=== PATIENT | male | born 2000 | race Caucasian/White ===

== ENCOUNTER 2022-12-07 19:29 | Inpatient (IN) | payer OTHER, BC ==
[~2022-12-07 19:29] MED LIST: Iopamidol-370 76% 500 ML MDV (1 ML CHARGE) ONE
[2022-12-07] MEDS ORDERED: Fentanyl CADD 100 ML IV SCH ×2 (19:45→22:15)
[2022-12-07] MEDS ORDERED: fentaNYL 50 mcg/mL 1 mL Vial ONE (19:57)
[2022-12-07 20:25] LABS: Actual Bicarbonate (HCO3v) 20.3 mEq/L (22-28); Analyzer IN Cardio ER; Base Excess -4.4 mEq/L (-2.0 to +3.0); Calcium, Ionized (venous) 1.14 mmol/L (1.16-1.32); Chloride (VBG) 104 mmol/L (98-106); Hematocrit-VBG 50 % (42.0-52.0); Hemoglobin (Hb) 16.9 g/dL (13.2-17.3); Potassium (VBG) 3.21 mmol/L (3.70-5.30); pH (venous) 7.362 (7.32-7.43)
[2022-12-07 20:27] LABS: Actual Bicarbonate (HCO3a) 20.1 mEq/L (22-28); Analyzer IN Cardio ER; Base Excess (BEa) -2.8 mEq/L (-2.0 to +3.0); CO2 Tension 30.5 mmHg (35.0-45.0); Calcium, Ionized (arterial) 1.14 mmol/L (1.12-1.30); Carboxyhemoglobin (COHb) 0.3 gm% (0.0-3.0); Hematocrit-ABG 46 % (42.0-52.0); Hemoglobin (Hb) 15.7 g/dL (14.0-18.0); O2 Tension (PaO2), arterial 575.3 mmHg (80.0-100.0); Potassium - ABG Lab 3.19 mmol/L (3.70-5.30); pH, Arterial 7.436 (7.35-7.45)
[2022-12-07 20:33] LABS: Puncture Site RFA
[2022-12-07 20:34] LABS: ALV-art Gradient 99.575 mmHg (0-20)
[2022-12-07 20:36] LABS: #Basophils 0.2 thou/uL (0.0-0.2); #Eosinphils 0.6 thou/uL (0.0-0.7); #Neutrophils 7.1 thou/uL (1.40-6.50); %Basophils 1.1 % (0.0-1.0); %Eosinophils 3.4 % (0.0-10.0); %Lymphocytes 45.5 % (21.0-51.0); %Monocytes 5.6 % (0.0-10.0); %Neutrophils 41.9 % (42.0-75.0); Hematocrit 50.4 % (42.0-52.0); Hemoglobin 17.5 g/dL (14.0-18.0); Mean Corpuscular HGB CONC 34.7 g/dL (32.0-36.0); Mean Corpuscular Hemoglobin 32.5 pg (27.0-31.0); Mean Corpuscular Volume 93.7 fl (78.0-98.0); Mean Platelet Volume 10.8 fL (7.4-10.4); Platelet Count 310 10x3/uL (130-400); RBC Distribution Width 11.9 % (11.5-14.5); Red Blood Cell (RBC) Count 5.38 mill/uL (4.70-6.10); White Blood Cell (WBC) Count 17.1 10x3/uL (4.8-10.8)
[2022-12-07] MEDS ORDERED: Midazolam HCl 2 mg/2 ml Vial ONE (20:41)
[2022-12-07] MEDS ORDERED: Water For Inject, Bacteriostat 30 ML ONE (20:41)
[2022-12-07] MEDS ORDERED: Vecuronium 10 MG VIAL ONE (20:41)
[2022-12-07] MEDS ORDERED: HYDROmorphone 2 MG/ML VIAL ONE (20:46)
[2022-12-07 20:50] LABS: INR-International Normal Ratio 1.1; PTT 24.9 sec (22.9-36.1)
[2022-12-07 20:58] LABS: ALT (SGPT) 23 U/L (8-55); AST (SGOT) 36 U/L (5-34); Albumin 4.7 g/dL (3.5-5.0); Alkaline Phosphatase 67 U/L (40-110); Anion Gap 18 mmol/L (10-20); BUN (Urea Nitrogen) 16 mg/dL (8.9-20.6); Bilirubin, Total 0.4 mg/dL (0.2-1.2); Calc. Creatinine Clearance 0 mL/min (70-130); Calcium 8.9 mg/dL (7.8-10.44); Carbon Dioxide 19 mmol/L (22-29); Chloride 105 mmol/L (98-107); Estimated GFR 80; Globulin 3.2 g/dL (2.4-3.5); Glucose 155 mg/dL (70-105); Potassium 3.4 mmol/L (3.5-5.1); Protein, Total 7.9 g/dL (6.0-8.3); Sodium 139 mmol/L (136-145)
[2022-12-07 21:23] LABS: Bilirubin Negative (Negative); Blood, Urine Trace (Negative); CAUTI Indications for Culture Alt mental st,lethar; Calcium Oxalate Crystals Rare HPF (None Seen); Clarity Clear (Clear); Glucose, Urine (Dipstick) Normal (Negative); Ketone, Urine Negative (Negative); Leukocyte Negative Leu/uL (Negative); Mucous/LPF Rare LPF (<2+); Nitrite Negative (Negative); Protein, Urine (Dipstick) 50 mg/dL (Neg-Trace); RBC/HPF 0-3 HPF (0-3); Specific Gravity, Urine 1.026 (1.002-1.036); Squamous Epithelial 0-3 HPF (0-3); Urobilinogen Normal mg/dL (Less than 2); WBC/HPF 0-3 HPF (0-3); pH, Urine 5.5 (5.0-9.0)
[2022-12-07 21:24] LABS: Bacteria/HPF 1+ HPF (None Seen)
[2022-12-07 21:26] LABS: Urine Culture Reflex No No
[2022-12-07] MEDS ORDERED: Vancomycin 1 GM VIAL ONE (21:42)
[2022-12-07] MEDS ORDERED: Glucagon 1 MG/ML KIT IM PRN (21:43)
[2022-12-07] MEDS ORDERED: Dextrose 5% in Water 1,000 ML IV PRN (21:43)
[2022-12-07] MEDS ORDERED: Ondansetron PF 4 MG/2 ML Vial IVP PRN (21:43)
[2022-12-07] MEDS ORDERED: TETANUS, DIPHTHERIA TOX,ADULT (TDVAX) 0.5 ML VIAL IM ONE (21:43)
[2022-12-07] MEDS ORDERED: Dextrose 50% Abboject 50 ML SYRINGE SLOW IVP PRN (21:43)
[2022-12-07] MEDS ORDERED: Ventilator Sedation Protocol 1 EACH FS ONE (21:57)
[2022-12-07] MEDS ORDERED: Rocuronium Bromide 10 MG/ML (10ML VIAL) ONE (22:06)
[2022-12-07] MEDS ORDERED: Ondansetron PF 4 MG/2 ML Vial ONE (22:06)
[2022-12-07] MEDS ORDERED: PHENYLEPHRINE-NS 100 MCG/ML 10 ML SYRINGE ONE (22:06)
[2022-12-07] MEDS ORDERED: Propofol 1,000 MG/100 ML VIAL IV PRN (22:15)
[2022-12-07] MEDS ORDERED: DISCONTINUE PREVIOUS NARCOTIC PAIN MEDICATIONS AND BENZODIAZEPINES FS SCH (22:15)
[2022-12-07] MEDS ORDERED: Propofol BOLUS 1,000 MG/100 ML VIAL IV PRN (22:15)
[2022-12-07] MEDS ORDERED: Morphine 2 MG/ML VIAL SLOW IVP PRN (22:15)
[2022-12-07] MEDS ORDERED: Lorazepam 2 MG/ML VIAL SLOW IVP PRN (22:15)
[2022-12-07] MEDS ORDERED: Fentanyl BOLUS 250 ML IVPB PRN (22:15)
[2022-12-07] MEDS ORDERED: SUGAMMADEX SODIUM 200 MG/2 ML VIAL ONE (23:45)
[2022-12-07] MEDS ORDERED: Bacitracin Zinc Ointment 30 gm TUBE ONE (23:55)
[2022-12-07] MEDS ORDERED: CEFAZOLIN 2 GM in Sodium Chloride 0.9% 100 ML IVPB SCH (23:59)
[2022-12-08] MEDS ORDERED: Midazolam HCl 2 mg/2 ml Vial ONE (00:24)
[2022-12-08] MEDS ORDERED: Fentanyl CADD 100 ML ONE (00:54)
[2022-12-08] MEDS ORDERED: Electrolyte Replacement Protocol 1 EACH FS SCH (01:15)
[2022-12-08 01:37] LABS: Lactic Acid 2.3 mmol/L (0.5-2.2)
[2022-12-08] MEDS: Sodium Chloride 0.9% 1,000 ML IV SCH ×4 (03:21→15:51)
[2022-12-08] MEDS: CEFAZOLIN 2 GM in Sodium Chloride 0.9% 100 ML IVPB SCH ×3 (04:04→20:48)
[2022-12-08 04:32] LABS: #Monocytes 1.6 thou/uL (0.11-0.59); #Neutrophils 19.9 thou/uL (1.40-6.50); %Basophils 0.2 % (0.0-1.0); %Lymphocytes 4.4 % (21.0-51.0); %Monocytes 6.9 % (0.0-10.0); %Neutrophils 87.9 % (42.0-75.0); Mean Corpuscular HGB CONC 35.1 g/dL (32.0-36.0); Mean Corpuscular Hemoglobin 32.3 pg (27.0-31.0); Mean Corpuscular Volume 92.2 fl (78.0-98.0); Mean Platelet Volume 10.6 fL (7.4-10.4); RBC Distribution Width 11.9 % (11.5-14.5); Red Blood Cell (RBC) Count 3.99 mill/uL (4.70-6.10); White Blood Cell (WBC) Count 22.7 10x3/uL (4.8-10.8)
[2022-12-08 04:48] LABS: Hematocrit 36.8 % (42.0-52.0); Hemoglobin 12.9 g/dL (14.0-18.0); Platelet Count 182 10x3/uL (130-400)
[2022-12-08 04:55] LABS: Phosphorus 2.2 mg/dL (2.3-4.7)
[2022-12-08 04:59] LABS: Anion Gap 12 mmol/L (10-20); BUN (Urea Nitrogen) 16 mg/dL (8.9-20.6); Calc. Creatinine Clearance 140 mL/min (70-130); Calcium 8.3 mg/dL (7.8-10.44); Carbon Dioxide 22 mmol/L (22-29); Chloride 109 mmol/L (98-107); Estimated GFR 118; Glucose 150 mg/dL (70-105); Magnesium 1.8 mg/dL (1.6-2.6); Potassium 4.4 mmol/L (3.5-5.1); Sodium 139 mmol/L (136-145)
[2022-12-08] MEDS ORDERED: Magnesium 2 GM/50 ML(in water) 2 GM in Premix Bag 1 BAG IVPB SCH (08:00)
[2022-12-08] MEDS: Famotidine/PF 20 mg/2ml Vial SLOW IVP SCH ×2 (08:31→20:48)
[2022-12-08] MEDS ORDERED: Aspirin 325 MG TAB PO SCH (13:23)
[2022-12-08] MEDS ORDERED: Morphine 2 MG/ML VIAL SLOW IVP PRN (20:04)
[2022-12-08] MEDS ORDERED: DC Sedation Protocol FS ONE (20:04)
[2022-12-08] MEDS ORDERED: Ibuprofen 600 MG TAB PO PRN (20:04)
[2022-12-08] MEDS ORDERED: Ibuprofen 200 MG TAB PO PRN (20:25)
[2022-12-08] MEDS ORDERED: Acetaminophen 500 MG TAB PO PRN (20:50)
[2022-12-08] MEDS ORDERED: Ibuprofen 600 MG TAB PO SCH (21:00)
[2022-12-08] MEDS: Acetaminophen 325 MG TAB PO SCH (21:55)
[2022-12-09] MEDS: Sodium Chloride 0.9% 1,000 ML IV SCH ×3 (02:52→20:16)
[2022-12-09] MEDS: Acetaminophen 325 MG TAB PO SCH ×3 (04:08→17:24)
[2022-12-09] MEDS: CEFAZOLIN 2 GM in Sodium Chloride 0.9% 100 ML IVPB SCH (04:09)
[2022-12-09 04:39] LABS: #Eosinphils 0.1 thou/uL (0.0-0.7); #Monocytes 1.1 thou/uL (0.11-0.59); %Basophils 0.3 % (0.0-1.0); %Lymphocytes 18.4 % (21.0-51.0); %Monocytes 10.9 % (0.0-10.0); %Neutrophils 68.9 % (42.0-75.0); Hemoglobin 10.6 g/dL (14.0-18.0); Mean Corpuscular HGB CONC 34.2 g/dL (32.0-36.0); Mean Corpuscular Hemoglobin 32.7 pg (27.0-31.0); Mean Platelet Volume 10.5 fL (7.4-10.4); Red Blood Cell (RBC) Count 3.24 mill/uL (4.70-6.10); White Blood Cell (WBC) Count 10.1 10x3/uL (4.8-10.8)
[2022-12-09 05:08] LABS: Platelet Count 129 10x3/uL (130-400)
[2022-12-09 05:09] LABS: Mean Corpuscular Volume 95.7 fl (78.0-98.0)
[2022-12-09 05:16] LABS: ALT (SGPT) 14 U/L (8-55); AST (SGOT) 34 U/L (5-34); Albumin 3.5 g/dL (3.5-5.0); Alkaline Phosphatase 39 U/L (40-110); Anion Gap 10 mmol/L (10-20); BUN (Urea Nitrogen) 8 mg/dL (8.9-20.6); Bilirubin, Total 0.8 mg/dL (0.2-1.2); Calc. Creatinine Clearance 159 mL/min (70-130); Calcium 8.3 mg/dL (7.8-10.44); Carbon Dioxide 25 mmol/L (22-29); Chloride 110 mmol/L (98-107); Estimated GFR 131; Globulin 2.2 g/dL (2.4-3.5); Glucose 91 mg/dL (70-105); Magnesium 2.2 mg/dL (1.6-2.6); Phosphorus 1.9 mg/dL (2.3-4.7); Potassium 3.8 mmol/L (3.5-5.1); Protein, Total 5.7 g/dL (6.0-8.3); Sodium 141 mmol/L (136-145)
[2022-12-09] MEDS ORDERED: Potassium Phosphate 15 MMOL in Sodium Chloride 0.9% 100 ML IVPB SCH (08:00)
[2022-12-09] MEDS: Ibuprofen 600 MG TAB PO PRN ×3 (08:23→21:54)
[2022-12-09] MEDS: Famotidine/PF 20 mg/2ml Vial SLOW IVP SCH ×2 (08:24→20:16)
[2022-12-09] MEDS: Aspirin 325 MG TAB PO SCH (08:25)
[2022-12-09] MEDS: prednisoLONE 1% Ophth Susp 5 ml Bottle EA EYE SCH ×8 (11:37→21:55)
[2022-12-09] MEDS: Senokot 8.6 MG TAB PO SCH (20:37)
[2022-12-10] MEDS: prednisoLONE 1% Ophth Susp 5 ml Bottle EA EYE SCH ×7 (00:11→11:59)
[2022-12-10] MEDS: Acetaminophen 325 MG TAB PO SCH ×5 (00:12→23:27)
[2022-12-10] MEDS: Sodium Chloride 0.9% 1,000 ML IV SCH (04:35)
[2022-12-10] MEDS: Polyethylene Glycol 3350 17 GM Packet PO SCH (09:21)
[2022-12-10] MEDS: Aspirin 325 MG TAB PO SCH (09:21)
[2022-12-10] MEDS: Senokot 8.6 MG TAB PO SCH ×2 (09:21→20:49)
[2022-12-10] MEDS: Famotidine/PF 20 mg/2ml Vial SLOW IVP SCH (09:21)
[2022-12-10] MEDS ORDERED: Acetaminophen/Codeine 30-300mg Tablet PO PRN (13:18)
[2022-12-10] MEDS: prednisoLONE 1% Ophth Susp 5 ml Bottle L EYE SCH ×2 (17:55→20:50)
[2022-12-10] MEDS: Famotidine 20 MG TAB PO SCH (20:49)
[2022-12-11] MEDS: Acetaminophen 325 MG TAB PO SCH ×3 (05:57→17:53)
[2022-12-11 07:28] VITALS: BMI 18.2
[2022-12-11 08:10] LABS: #Eosinphils 0.3 thou/uL (0.0-0.7); #Monocytes 0.6 thou/uL (0.11-0.59); #Neutrophils 3.6 thou/uL (1.40-6.50); %Basophils 0.6 % (0.0-1.0); %Eosinophils 4.4 % (0.0-10.0); %Lymphocytes 28.3 % (21.0-51.0); %Monocytes 9.2 % (0.0-10.0); %Neutrophils 57.2 % (42.0-75.0); Hematocrit 31.1 % (42.0-52.0); Hemoglobin 10.9 g/dL (14.0-18.0); Mean Corpuscular Hemoglobin 32.7 pg (27.0-31.0); Mean Corpuscular Volume 93.4 fl (78.0-98.0); Mean Platelet Volume 10.3 fL (7.4-10.4); Platelet Count 159 10x3/uL (130-400); RBC Distribution Width 11.7 % (11.5-14.5); Red Blood Cell (RBC) Count 3.33 mill/uL (4.70-6.10); White Blood Cell (WBC) Count 6.3 10x3/uL (4.8-10.8)
[2022-12-11 08:35] LABS: ALT (SGPT) 20 U/L (8-55); AST (SGOT) 57 U/L (5-34); Albumin 3.9 g/dL (3.5-5.0); Alkaline Phosphatase 41 U/L (40-110); Anion Gap 13 mmol/L (10-20); BUN (Urea Nitrogen) 9 mg/dL (8.9-20.6); Bilirubin, Total 0.6 mg/dL (0.2-1.2); Calc. Creatinine Clearance 131 mL/min (70-130); Calcium 8.9 mg/dL (7.8-10.44); Carbon Dioxide 26 mmol/L (22-29); Chloride 108 mmol/L (98-107); Estimated GFR 127; Globulin 2.6 g/dL (2.4-3.5); Glucose 88 mg/dL (70-105); Magnesium 1.8 mg/dL (1.6-2.6); Phosphorus 3.7 mg/dL (2.3-4.7); Potassium 3.6 mmol/L (3.5-5.1); Protein, Total 6.5 g/dL (6.0-8.3); Sodium 143 mmol/L (136-145)
[2022-12-11] MEDS ORDERED: Magnesium 2 GM/50 ML(in water) 2 GM in Premix Bag 1 BAG IVPB SCH (09:00)
[2022-12-11] MEDS: Polyethylene Glycol 3350 17 GM Packet PO SCH (09:15)
[2022-12-11] MEDS: Aspirin 325 MG TAB PO SCH (09:15)
[2022-12-11] MEDS: Senokot 8.6 MG TAB PO SCH ×2 (09:15→21:16)
[2022-12-11] MEDS: Famotidine 20 MG TAB PO SCH ×2 (09:15→21:16)
[2022-12-11] MEDS: Bacitracin Zinc Ointment 30 gm TUBE TOP SCH (09:16)
[2022-12-11] MEDS: prednisoLONE 1% Ophth Susp 5 ml Bottle L EYE SCH ×4 (09:17→21:15)
[2022-12-11] MEDS: Acetaminophen/Codeine 30-300mg Tablet PO PRN (17:53)
[2022-12-12] MEDS: Acetaminophen 325 MG TAB PO SCH ×5 (00:03→22:40)
[2022-12-12] MEDS: Polyethylene Glycol 3350 17 GM Packet PO SCH (09:13)
[2022-12-12] MEDS: prednisoLONE 1% Ophth Susp 5 ml Bottle L EYE SCH ×4 (09:13→22:18)
[2022-12-12] MEDS: Senokot 8.6 MG TAB PO SCH ×2 (09:13→22:17)
[2022-12-12] MEDS: Aspirin 325 MG TAB PO SCH (09:13)
[2022-12-12] MEDS: Bacitracin Zinc Ointment 30 gm TUBE TOP SCH (09:14)
[2022-12-12 09:20] LABS: #Eosinphils 0.3 thou/uL (0.0-0.7); #Monocytes 0.6 thou/uL (0.11-0.59); #Neutrophils 3.2 thou/uL (1.40-6.50); %Basophils 0.7 % (0.0-1.0); %Eosinophils 5.6 % (0.0-10.0); %Lymphocytes 30.3 % (21.0-51.0); %Monocytes 10.2 % (0.0-10.0); %Neutrophils 52.7 % (42.0-75.0); Hematocrit 33.3 % (42.0-52.0); Hemoglobin 11.5 g/dL (14.0-18.0); Mean Corpuscular HGB CONC 34.5 g/dL (32.0-36.0); Mean Corpuscular Hemoglobin 32.7 pg (27.0-31.0); Mean Corpuscular Volume 94.6 fl (78.0-98.0); Mean Platelet Volume 9.9 fL (7.4-10.4); Platelet Count 188 10x3/uL (130-400); RBC Distribution Width 11.9 % (11.5-14.5); Red Blood Cell (RBC) Count 3.52 mill/uL (4.70-6.10); White Blood Cell (WBC) Count 6.1 10x3/uL (4.8-10.8)
[2022-12-12 10:23] LABS: Anion Gap 14 mmol/L (10-20); BUN (Urea Nitrogen) 9 mg/dL (8.9-20.6); Calc. Creatinine Clearance 131 mL/min (70-130); Carbon Dioxide 24 mmol/L (22-29); Chloride 108 mmol/L (98-107); Estimated GFR 124; Glucose 87 mg/dL (70-105); Sodium 142 mmol/L (136-145)
[2022-12-12 10:24] LABS: ALT (SGPT) 21 U/L (8-55); AST (SGOT) 51 U/L (5-34); Alkaline Phosphatase 46 U/L (40-110); Bilirubin, Total 0.7 mg/dL (0.2-1.2); Calcium 9.4 mg/dL (7.6-10.4); Globulin 2.8 g/dL (2.4-3.5); Protein, Total 6.8 g/dL (6.0-8.3)
[2022-12-12] MEDS: Acetaminophen/Codeine 30-300mg Tablet PO PRN ×2 (12:45→22:17)
[2022-12-12] MEDS ORDERED: Scopolamine 1.5 mg/72 hour Patch TD SCH (17:15)
[2022-12-13] MEDS: Acetaminophen 325 MG TAB PO SCH ×3 (05:28→17:28)
[2022-12-13] MEDS ORDERED: Lactulose 10 GM/15 ML Oral Solution PO SCH (09:00)
[2022-12-13] MEDS: Aspirin 325 MG TAB PO SCH (09:14)
[2022-12-13] MEDS: Polyethylene Glycol 3350 17 GM Packet PO SCH (09:15)
[2022-12-13] MEDS: Bacitracin Zinc Ointment 30 gm TUBE TOP SCH (09:15)
[2022-12-13] MEDS: Senokot 8.6 MG TAB PO SCH ×2 (09:15→20:18)
[2022-12-13] MEDS: prednisoLONE 1% Ophth Susp 5 ml Bottle L EYE SCH ×4 (09:16→20:18)
[2022-12-13] MEDS: Acetaminophen/Codeine 30-300mg Tablet PO PRN (11:42)
[2022-12-14] MEDS: Acetaminophen 325 MG TAB PO SCH ×3 (00:16→12:39)
[2022-12-14] MEDS: prednisoLONE 1% Ophth Susp 5 ml Bottle L EYE SCH ×2 (09:00→12:41)
[2022-12-14] MEDS ORDERED: Bacitracin 1 PK TOP SCH (09:00)
[2022-12-14] MEDS ORDERED: Bacitracin Zinc Ointment 30 gm TUBE TOP SCH (09:00)
[2022-12-14] MEDS: Aspirin 325 MG TAB PO SCH (09:59)
[2022-12-14] MEDS: Polyethylene Glycol 3350 17 GM Packet PO SCH (10:02)
[2022-12-14] MEDS: Senokot 8.6 MG TAB PO SCH (10:02)
[2022-12-14 13:36] VITALS: BP 92/55; TEMP 98.6
== END 2022-12-14 16:50 | DRG 40 ==
LOC: EDBD 19:29 → ERS 19:29 → SDC/OP 21:23 → CCU 21:43 → SURG A 12-09 12:15
PROVIDERS: ADMIT Surgery; ATTEND Surgery
PROC: 05H633Z Insertion of Infusion Device into Left Subclavian Vein, Percutaneous Approach (ICD-10-PCS; principal; 2022-12-07)
PROC: 0T9B70Z Drainage of Bladder with Drainage Device, Via Natural or Artificial Opening (ICD-10-PCS; 2022-12-07)
PROC: 0BH17EZ Insertion of Endotracheal Airway into Trachea, Via Natural or Artificial Opening (ICD-10-PCS; 2022-12-07)
PROC: 4A033R1 Measurement of Arterial Saturation, Peripheral, Percutaneous Approach (ICD-10-PCS; 2022-12-07)
PROC: 4A043R1 Measurement of Venous Saturation, Peripheral, Percutaneous Approach (ICD-10-PCS; 2022-12-07)
PROC: 0JB40ZZ Excision of Right Neck Subcutaneous Tissue and Fascia, Open Approach (ICD-10-PCS; 2022-12-07)
PROC: 0JB70ZZ Excision of Back Subcutaneous Tissue and Fascia, Open Approach (ICD-10-PCS; 2022-12-07)
PROC: 0JQ40ZZ Repair Right Neck Subcutaneous Tissue and Fascia, Open Approach (ICD-10-PCS; 2022-12-07)
PROC: 0JQ70ZZ Repair Back Subcutaneous Tissue and Fascia, Open Approach (ICD-10-PCS; 2022-12-07)
PROC: 0JQ00ZZ Repair Scalp Subcutaneous Tissue and Fascia, Open Approach (ICD-10-PCS; 2022-12-07)
PROC: 0JB00ZZ Excision of Scalp Subcutaneous Tissue and Fascia, Open Approach (ICD-10-PCS; 2022-12-07)
PROC: 0HBBXZZ Excision of Right Upper Arm Skin, External Approach (ICD-10-PCS; 2022-12-07)
PROC: 5A1935Z Respiratory Ventilation, Less than 24 Consecutive Hours (ICD-10-PCS; 2022-12-08)
DX: S06.2X9A Diffuse traumatic brain injury with loss of consciousness of unspecified duration, initial encounter (principal); I77.71 Dissection of carotid artery; J96.00 Acute respiratory failure, unspecified whether with hypoxia or hypercapnia; E87.20 Acidosis, unspecified; S32.029A Unspecified fracture of second lumbar vertebra, initial encounter for closed fracture; S73.014A Posterior dislocation of right hip, initial encounter; S32.039A Unspecified fracture of third lumbar vertebra, initial encounter for closed fracture; S15.0 Injury of carotid artery of neck; S06.339A Contusion and laceration of cerebrum, unspecified, with loss of consciousness of unspecified duration, initial encounter; V23.49XA Other motorcycle driver injured in collision with car, pick-up truck or van in traffic accident, initial encounter; S41.011A Laceration without foreign body of right shoulder, initial encounter; S11.91XA Laceration without foreign body of unspecified part of neck, initial encounter; E87.6 Hypokalemia; E83.39 Other disorders of phosphorus metabolism; M47.899 Other spondylosis, site unspecified; S21.211A Laceration without foreign body of right back wall of thorax without penetration into thoracic cavity, initial encounter; S01.01XA Laceration without foreign body of scalp, initial encounter; M45.9 Ankylosing spondylitis of unspecified sites in spine
CPT/HCPCS: 36415; 36600; 70450; 70498; 71045; 71260; 72125; 72170; 74177; 80048; 80053; 81001; 82805; 83605; 83735; 84100; 85025; 85610; 85730; 86850; 86900; 86901; 93970; 94002; 97139; G0390; J1170; J1650; J2250; J2272; J2405; J3010; J3370; J3475; J3490; J7050; Q9967; S0028

== ENCOUNTER 2022-12-14 21:48 | Emergency (ER) | payer BC | END 2022-12-14 22:20 | disposition home or self-care (01) | LOC: ERS 21:48 | DX: R04.0 Epistaxis (principal) | CPT/HCPCS: 99283 ==